=== PATIENT | male | born 1995 | race Hispanic/Latino ===

== ENCOUNTER 2021-12-26 11:58 | Emergency (ER) | payer OTHER ==
[2021-12-26 12:39] LABS: Urine Blood Negative (Negative); Urine Glucose Negative (Negative); Urine Protein Negative (Negative)
[2021-12-26 12:45] LABS: Absolute Lymphocytes (CBC) 2.1 K/uL (0.7-4.9); Lymphocytes % 28.2 % (15.3-44.8); MCV 85.5 fL (80-100); MPV 8.4 fL (7.6-11.3); RBC Red Blood Cell Count 5.62 M/uL (4.33-5.43)
[2021-12-26 12:58] LABS: Urine Bacteria None Seen /HPF (<20); Urine RBC <5 /HPF (None Seen)
[2021-12-26 13:52] LABS: Albumin 3.9 g/dL (3.4-5.0); Bilirubin Total 0.7 mg/dL (0.2-1.0); Potassium 3.4 mmol/L (3.5-5.1); Protein, Total 7.5 g/dL (6.4-8.2)
--- NOTE | 2021-12-26 16:04 | P.CNS ---
Date of Consult: 12/26/21 26-year-old gentleman referred from the local [place] [facility] because of penile swelling. He is uncircumcised, but he notes he is typically able to retract the foreskin without difficulty. He denied any associated issues or cracking of the foreskin prior to this current presentation. Prior to this occurring, he recalls masturbating using Vaseline sold within the [place] [facility]. He had use this on multiple occasions before without issue. However at this time, on [place], yesterday, he developed significant swelling of the phallus, and this caused him concern resulting in his presentation today for evaluation. He has no pain, and he is able to void without issue. Examination: Well-appearing, well-developed, well-nourished, no acute distress No dyspnea or sign of respiratory distress Alert, awake, oriented Abdomen nondistended and suprapubic region nontender with no masses palpable or crepitus. Genitalia: Phallus uncircumcised with significant edematous swelling of the entirety of the shaft skin and prepuce. The glans is not visible as the prep use is not retractable. No skin lesions are noted, and the entirety of the phallus was nontender to deep palpation. On the dorsal mid proximal shaft, there were nodular hard mobile structures within, but he informed me that these were dominoes placed underneath the skin from before he was imprisoned. No tenderness around these dominoes was present. Scrotum with some desquamation changes on the anterior surface next to the ventral surface of the phallus with the remainder of the scrotum unaffected. No significant scrotal edema noted. Testes bilaterally descended without mass and nontender. Perianal region normal without lesion noted or tenderness. Patient was otherwise handcuffed and shackled to his feet within the bed limiting his mobility. Assessment and recommendation: 26-year-old gentleman inmate with sudden onset swelling of the penile shaft skin without pain or tenderness and history of remote placement of a foreign body subcutaneously on the dorsal surface of the penis. -This appears to be potentially an allergic or inflammation reaction to something, potentially a bite from a spider or an insect, though no point of injury is noted. Alternatively, this may represent idiopathic penile edema. -Recommend pelvic CT with contrast to rule out obstruction of the lymphatics underlying this -Hepatic, renal, thyroid, pancreatic function, sedimentation rate, CEA, IgG, IgA, IgM, C3, C4, rheumatoid factor, antinuclear antibodies, ANCA, beta-hCG and PSA tested on similar circumstances in the literature -Elevate genitalia relative to the pelvis/heart, and alternate warm packs with cool packs every 15 to 30 minutes to decrease the edema. -If no lymphatic obstruction noted, consider anti-inflammatories, potentially with a course of prednisone -Outpatient follow-up in ~2 weeks with me in the urology in the clinic to assess for improvement, as this typically resolves in about 2 weeks time. Or he should be seen sooner if this progressively worsens, especially with development of pain or tenderness.
--- NOTE | 2021-12-26 17:01 | RAD REPORT ---
EXAM DESCRIPTION: CT - Pelvis W/Cont - 12/26/2021 4:49 pm CLINICAL HISTORY: penile swelling Pain and swelling COMPARISON: No comparisons TECHNIQUE: All CT scans are performed using dose optimization technique as appropriate and may inclu de automated exposure control or mA/KV adjustment according to patient size. FINDINGS: There is a large amount of subcutaneous edema soft tissue inflammation involving the penis . This may be related to infection. Well-formed abscess is not identified. There are 2 foreign body like structure is present along the anterior subcutaneous soft tissues of th e penis measuring 27 mm and 13 mm. Clinical correlation recommended.
[2021-12-26 17:32] LABS: Lipase 120 U/L (73-393)
[2021-12-26 17:33] LABS: HCG, Quantitative < 1 mIU/mL (<1)
--- NOTE | 2021-12-26 17:51 | ER ---
Nurse's Notes [facility] Name: Raphael Shi Age: 26 yrs Sex: Male : 1995 Arrival Date: 12/26/2021 Time: 12:01 Bed 10 Private MD: Diagnosis: Penile Edema Presentation: 12/26 12:02 Chief complaint: Rash on penis x 2-3 days. Denies itching/pain. Coronavirus screen: At this time, the client does not indicate any symptoms associated with coronavirus-19. Ebola Screen: No symptoms or risks identified at this time. Initial Sepsis Screen: Does the patient meet any 2 criteria? No. Patient's initial sepsis screen is negative. Does the patient have a suspected source of infection? No. Patient's initial sepsis screen is negative. Risk Assessment: Do you want to hurt yourself or someone else? Patient reports no desire to harm self or others. Onset of symptoms was December 24, 2021. 12:02 Method Of Arrival: Law Enforcement: [place] [facility] 12:02 Acuity: LEDA 3 hb Triage Assessment: 12:03 General: Appears in no apparent distress. Behavior is calm, cooperative. Pain: Denies hb pain. Neuro: Level of Consciousness is awake, alert, obeys commands, Oriented to person, place, time, situation. Cardiovascular: Patient's skin is warm and dry. Respiratory: Respiratory effort is even, unlabored, Respiratory pattern is regular, symmetrical. Historical: - Allergies: 12:03 No Known Allergies; hb - Home Meds: 12:03 None [Active]; hb - PMHx: 12:03 None; hb - PSHx: 12:03 None; hb - Immunization history:: Adult Immunizations up to date. - Social history:: Smoking status: Patient denies any tobacco usage or history of. Screenin:04 Abuse screen: Denies threats or abuse. Denies injuries from another. Nutritional hb screening: No deficits noted. Tuberculosis screening: No symptoms or risk factors identified. Fall Risk None identified. Assessment: 12:04 General: See triage assessment. hb 13:28 Reassessment: OK to feed pt per BRITTNEE Larkin. Food and drink provided as requested. Officers hb remain at bedside. 14:40 Reassessment: Patient appears in no apparent distress at this time. Patient and/or hb family updated on plan of care and expected duration. Pain level reassessed. Patient is alert, oriented x 3, equal unlabored respirations, skin warm/dry/pink. 15:59 Reassessment: Patient appears in no apparent distress at this time. No changes from hb previously documented assessment. Patient and/or family updated on plan of care and expected duration. Pain level reassessed. Patient is alert, oriented x 3, equal unlabored respirations, skin warm/dry/pink. 17:17 Reassessment: Patient appears in no apparent distress at this time. No changes from hb previously documented assessment. Patient and/or family updated on plan of care and expected duration. Pain level reassessed. Patient is alert, oriented x 3, equal unlabored respirations, skin warm/dry/pink. 18:10 Reassessment: Patient appears in no apparent distress at this time. Patient and/or hb family updated on plan of care and expected duration. Pain level reassessed. Patient is alert, oriented x 3, equal unlabored respirations, skin warm/dry/pink. Vital Signs: 12:02 BP 160 / 102; Pulse 100; Resp 16; Temp 97.8; Pulse Ox 100% on R/A; Weight 83.91 kg; hb Height 5 ft. 7 in. (170.18 cm); Pain 0/10; 15:45 BP 138 / 80; Pulse 88; Resp 16; Pulse Ox 99% on R/A; Pain 0/10; hb 18:00 BP 128 / 78; Pulse 84; Resp 16; Pulse Ox 100% on R/A; Pain 0/10; hb 12:02 Body Mass Index 28.97 (83.91 kg, 170.18 cm) ED Course: 12:01 Patient arrived in ED. hb 12:02 Triage completed. hb 12:03 Arm band placed on. hb 12:04 Patient has correct armband on for positive identification. hb 12:06 Trea Maharaj PA is PHCP. [facility] 12:06 Frank Cheng MD is Attending Physician. [facility] 12:11 Cierra Bentley, PUNEET is Primary Nurse. hb 12:41 Inserted saline lock: 20 gauge in left hand, using aseptic technique. Blood collected. hb 16:50 CT Pelvis w cont In Process Unspecified. EDMS 17:50 Chuy Rivas MD is Referral Physician. [facility] 18:10 No provider procedures requiring assistance completed. IV discontinued, intact, hb bleeding controlled, No redness/swelling at site. Administered Medications: 18:10 Drug: predniSONE 60 mg Route: PO; hb 18:10 Follow up: Response: Medication administered at discharge. hb Medication: 12:04 VIS not applicable for this client. hb Outcome: 17:51 Discharge ordered by . telma 18:10 Discharged to Law Enforcement hb 18:10 Condition: stable 18:10 Discharge instructions given to patient, police, Instructed on discharge instructions, follow up and referral plans. medication usage, Demonstrated understanding of instructions, follow-up care, medications, Prescriptions given X 1. 18:37 Patient left the ED. hb Signatures: Dispatcher [employer] EDMS Trae Maharaj PA PA jmm Baxter, Heather, RN RN hb Corrections: (The following items were deleted from the chart) 12:11 12:02 Acuity: LEDA 4 hb hb
--- NOTE | 2021-12-26 17:52 | EDPHYS ---
Physician Documentation [facility] Name: Raphael Shi Age: 26 yrs Sex: Male : 1995 Arrival Date: 12/26/2021 Time: 12:01 Bed 10 Private MD: ED Physician Frank Cheng HPI: 12/26 17:46 This 26 yrs old Male presents to ER via Law Enforcement with complaints of jmm Penile Problem. 17:46 The patient presents with swelling. Onset: The symptoms/episode began/occurred jmm gradually, 2 day(s) ago. This is a 26-year-old man with no chronic medical conditions presents emerged part with complaints of penile swelling which initially began approximately a day ago. Patient states that he had masturbated using Vaseline approximately 2 days ago. Today swelling increased dramatically, patient is able to urinate without difficulty. Patient denies fever. Patient denies pain but states does have a slight itch.. Historical: - Allergies: 12:03 No Known Allergies; hb - Home Meds: 12:03 None [Active]; hb - PMHx: 12:03 None; hb - PSHx: 12:03 None; hb - Immunization history:: Adult Immunizations up to date. - Social history:: Smoking status: Patient denies any tobacco usage or history of. ROS: 17:46 Constitutional: Negative for fever, chills, and weight loss, Cardiovascular: Negative jmm for chest pain, palpitations, and edema, Respiratory: Negative for shortness of breath, cough, wheezing, and pleuritic chest pain. 17:46 : Positive for Penile swelling. 17:46 All other systems are negative. Exam: 17:46 Constitutional: This is a well developed, well nourished patient who is awake, alert, jmm and in no acute distress. Head/Face: atraumatic. Eyes: EOMI, no conjunctival erythema appreciated ENT: Moist Mucus Membranes Neck: Trachea midline, Supple Chest/axilla: Normal chest wall appearance and motion. Cardiovascular: Regular rate and rhythm. No edema appreciated Respiratory: Normal respirations, no respiratory distress appreciated Abdomen/GI: Non distended Back: Normal ROM Skin: General appearance color normal 17:46 MS/ Extremity: Moves all extremities, no obvious deformities appreciated, no edema noted to the lower extremities Neuro: Awake and alert Psych: Behavior is normal, Mood is normal, Patient is cooperative and pleasant 17:46 : Diffuse edema noted to the penis, unable to retract foreskin secondary to edema. Nontender to palpation but erythematous. 2 masses appreciated at the base of the dorsal surface. No purulent drainage appreciated. Vital Signs: 12:02 BP 160 / 102; Pulse 100; Resp 16; Temp 97.8; Pulse Ox 100% on R/A; Weight 83.91 kg; hb Height 5 ft. 7 in. (170.18 cm); Pain 0/10; 15:45 BP 138 / 80; Pulse 88; Resp 16; Pulse Ox 99% on R/A; Pain 0/10; hb 18:00 BP 128 / 78; Pulse 84; Resp 16; Pulse Ox 100% on R/A; Pain 0/10; hb 12:02 Body Mass Index 28.97 (83.91 kg, 170.18 cm) hb MDM: 12:10 Patient medically screened. [facility] 17:49 Data reviewed: vital signs, nurses notes. Counseling: I had a detailed discussion with telma the patient and/or guardian regarding: the historical points, exam findings, and any diagnostic results supporting the discharge/admit diagnosis, lab results, radiology results, the need for outpatient follow up, to return to the emergency department if symptoms worsen or persist or if there are any questions or concerns that arise at home. ED course: The patient was evaluated by urology who evaluated the patient at bedside. Did not recommend inpatient evaluation. Will see patient in 2 weeks for reevaluation. Do recommend elevation of genitalia and alternation of warm and cool packs every 15 to 20 minutes. Also did recommend a course of steroids to help with the swelling.. 12/26 12:11 Order name: CBC with Diff; Complete Time: 12:46 [facility] 12/26 12:11 Order name: CMP; Complete Time: 13:55 [facility] 12/26 12:11 Order name: Lactate; Complete Time: 13:07 [facility] 12/26 12:11 Order name: Blood Culture Adult (2) [facility] 12/26 12:40 Order name: Urine Dipstick-Ancillary; Complete Time: 12:44 [facility] 12/26 12:41 Order name: Urine Microscopic Only; Complete Time: 12:59 12/26 16:25 Order name: Lipase; Complete Time: 17:40 [facility] 12/26 16:25 Order name: TSH; Complete Time: 17:40 [facility] 12/26 16:26 Order name: Beta hcg; Complete Time: 17:40 [facility] 12/26 16:26 Order name: Psa Screen [facility] 12/26 17:31 Order name: CAESAR IFA Screen w/Reflex [facility] 12/26 17:31 Order name: C-ANCA Anti-Proteinase 3 [facility] 12/26 17:31 Order name: Carcinoembryonic Antigen [facility] 12/26 12:11 Order name: Saline Lock; Complete Time: 12:41 [facility] 12/26 12:11 Order name: Urine Dipstick-Ancillary (obtain specimen); Complete Time: 12:41 [facility] 12/26 12:49 Order name: Labs - recollect needed: recollect green top; Complete Time: 13:28 12/26 15:43 Order name: CT Pelvis w cont; Complete Time: 17:05 [facility] 12/26 17:31 Order name: Complement C3 [facility] 12/26 17:31 Order name: Complement C4 [facility] 12/26 17:31 Order name: Hepatitis A IgM Antibody [facility] 12/26 17:31 Order name: Rheumatoid Factor [facility] 12/26 17:32 Order name: P-ANCA Anti-Myeloperoxidase Ab [facility] 12/26 18:24 Order name: Immunoglobulin A [facility] 12/26 18:24 Order name: Immunoglobulin G [facility] Administered Medications: 18:10 Drug: predniSONE 60 mg Route: PO; hb 18:10 Follow up: Response: Medication administered at discharge. hb Disposition: 12/27 10:29 Co-signature as Attending Physician, Frank Cheng MD I agree with the assessment and kdr plan of care. Disposition Summary: 12/26/21 17:51 Discharge Ordered Location: Home [facility] Condition: Stable [facility] Diagnosis - Penile Edema [facility] Followup: [facility] - With: Chuy Rivas MD - When: 2 weeks - Reason: Recheck today's complaints, Continuance of care, Re-evaluation by your physician Discharge Instructions: - Discharge Summary Sheet [facility] - Edema [facility] Forms: - Medication Reconciliation Form [facility] - Thank You Letter [facility] - Antibiotic Education [facility] - Prescription Opioid Use [facility] Prescriptions: - Prednisone 20 mg Oral Tablet - take 3 tablets by ORAL route once daily for 5 days; 15 tablet; Refills: 0, jmm Product Selection Permitted Signatures: Dispatcher [employer] EDMS Rima Rodriguez Kevin, MD MD kdr Mickail, Joel, PA PA jmm Baxter, Heather, RN RN hb Corrections: (The following items were deleted from the chart) 12/26 18:24 17:31 Gliadin Ab (IgG ordered. EDMS EDMS
[2021-12-26] MEDS ORDERED: predniSONE 20 MG TAB ONE (18:05)
[2021-12-26 20:40] VITALS: TEMP 97.8
[2021-12-26 20:45] VITALS: BP 128/78; O2SAT 100
[2021-12-27 13:59] LABS: Rheumatoid Factor NEG (NEG)
== END 2021-12-26 18:37 | disposition home or self-care (01) ==
LOC: ER 11:58
DX: N48.89 Other specified disorders of penis (principal)
CPT/HCPCS: 87040 ×2; 85025; 36415; 86430; 83605; 82378; 84702; 84443; 83690; 80053; 86709; 86038; 86160 ×2; 82784 ×2; 86021 ×2; 72193; Q9967; J7512; 81003; 81015